=== PATIENT | female | born 1995 | race Caucasian/White ===

== ENCOUNTER 2017-09-12 22:31 | Emergency (ER) | payer SELFPAY ==
[2017-09-12] MEDS ORDERED: Ondansetron 4 MG/2 ML SDV IVPUSH ONE (22:51)
[2017-09-12] MEDS ORDERED: Ketorolac 30 MG/ML SDV IVPUSH ONE (22:51)
[2017-09-12] MEDS ORDERED: Sodium Chloride 0.9% 1,000 ML IV ONE (22:51)
--- NOTE | 2017-09-12 23:02 | EDM.PDOC ---
ED HPI GENERAL MEDICAL PROBLEM - General Chief Complaint: Flank Pain Stated Complaint: ABDOMINAL PAIN Time Seen by Provider: 09/12/17 22:56 - History of Present Illness INITIAL COMMENTS - FREE TEXT/NARRATIVE: HISTORY AND PHYSICAL: History of present illness: Patient's 22-year-old female history of anxiety presents with a concern of left flank pain she's had no urinary symptoms she denies trauma denies numbness weakness in concert touch bowel or bladder denies history of sexually transmitted diseases vaginal discharge or irregular bleeding. Review of systems: As per history of present illness and below otherwise all systems reviewed and negative. Past medical history: As per history of present illness and as reviewed below otherwise noncontributory. Surgical history: As per history of present illness and as reviewed below otherwise noncontributory. Social history: No reported history of drug or alcohol abuse. Family history: As per history of present illness and as reviewed below otherwise noncontributory. Physical exam: HEENT: Atraumatic, normocephalic, pupils reactive, negative for conjunctival pallor or scleral icterus, mucous membranes moist, throat clear, neck supple, nontender, trachea midline. Lungs: Clear to auscultation, breath sounds equal bilaterally, chest nontender. Heart: S1S2, regular, negative for clicks, rubs, or JVD. Abdomen: Soft, nondistended, nontender. Negative for masses or hepatosplenomegaly. Mild equivocal left side costovertebral tenderness. Pelvis: Stable nontender. Genitourinary: Deferred. Rectal: Deferred. Extremities: Atraumatic, negative for cords or calf pain. Neurovascular unremarkable. Neuro: Awake, alert, oriented. Cranial nerves II through XII unremarkable. Cerebellum unremarkable. Motor and sensory unremarkable throughout. Exam nonfocal. Diagnostics: CBC CMP hCG UA lipase Therapeutics: Normal saline 1 L bolus Toradol 30 mg IV Zofran 4 mg IV Impression: 1 left flank pain Definitive disposition and diagnosis as appropriate pending reevaluation and review of above. left flank Pain Score (Numeric/FACES): 10 - Related Data Allergies Allergy/AdvReac Type Severity Reaction Status Date / Time No Known Allergies Allergy Verified 09/12/17 23:34 Home Meds: Home Meds . [No Known Home Meds] 09/12/17 [History] Past Medical History - Past Health History Medical/Surgical History: Denies Medical/Surgical History Psychiatric History: Reports: Depression - Past Surgical History HEENT Surgical History: Reports: Tonsillectomy Female Surgical History: Reports: Other (See Below) Other Female Surgeries/Procedures: explor lap Social & Family History - Family History Family Medical History: Noncontributory Cardiac: Reports: Hypertension Other Endocrine/Metabolic Family History: Thyroid disease mom - Tobacco Use Smoking Status *Q: Current Every Day Smoker Years of Tobacco use: 5 Packs/Tins Daily: 1 Used Tobacco, but Quit: No Second Hand Smoke Exposure: Yes - Alcohol Use Days Per Week of Alcohol Use: 1 Number of Drinks Per Day: 1 Total Drinks Per Week: 1 - Recreational Drug Use Recreational Drug Use: No Drug Use in Last 12 Months: Yes Recreational Drug Type: Reports: Marijuana/Hashish Recreational Drug Use Frequency: Weekly ED ROS GENERAL - Review of Systems Review Of Systems: ROS reveals no pertinent complaints other than HPI. ED EXAM, GENERAL - Physical Exam Exam: See Below (The dictation) Course - Vital Signs Last Recorded V/S: Last Vital Signs Temp 36.6 C 09/13/17 00:10 Pulse 77 09/13/17 00:10 Resp 18 09/13/17 00:10 BP 97/63 09/13/17 00:10 Pulse Ox 97 09/13/17 00:10 - Orders/Labs/Meds Orders: Active Orders 24 hr Category Date Time Status cefTRIAXone [Rocephin in Dextrose,Iso-Osm 1 GM/50 ML] 1 Med 09/13/17 00:11 Active gm Premix Bag 1 bag IV ONETIME Medication Orders Ceftriaxone Sodium/Dextrose 1 (gm/ Premix) 50 mls @ 100 mls/hr IV ONETIME ONE Stop: 09/13/17 00:40 Labs: Laboratory Tests 09/12/17 09/12/17 09/12/17 Range/Units 22:45 22:45 23:00 WBC 16.39 H (4.0-11.0) K/uL RBC 4.50 (4.30-5.90) M/uL Hgb 14.3 (12.0-16.0) g/dL Hct 41.3 (36.0-46.0) % MCV 91.8 (80.0-98.0) fL MCH 31.8 (27.0-32.0) pg MCHC 34.6 (31.0-37.0) g/dL RDW Std Deviation 40.9 (28.0-62.0) fl RDW Coeff of Love 12 (11.0-15.0) % Plt Count 233 (150-400) K/uL MPV 9.30 (7.40-12.00) fL Neut % (Auto) 73.0 (48.0-80.0) % Lymph % (Auto) 18.7 (16.0-40.0) % [place] % (Auto) 7.8 (0.0-15.0) % Eos % (Auto) 0.3 (0.0-7.0) % Baso % (Auto) 0.2 (0.0-1.5) % Neut # (Auto) 12.0 H (1.4-5.7) K/uL Lymph # (Auto) 3.1 H (0.6-2.4) K/uL [place] # (Auto) 1.3 H (0.0-0.8) K/uL Eos # (Auto) 0.1 (0.0-0.7) K/uL Baso # (Auto) 0.0 (0.0-0.1) K/uL Nucleated RBC % 0.0 /100WBC Nucleated RBCs # 0 K/uL Sodium (136-146) mmol/L Potassium (3.5-5.1) mmol/L Chloride (98-110) mmol/L Carbon Dioxide (21-31) mmol/L BUN (6.0-23.0) mg/dL Creatinine (0.6-1.5) mg/dL Est Cr Clr Drug Dosing mL/min Estimated GFR (MDRD) ml/min Glucose (60-110) mg/dL Calcium (8.8-10.8) mg/dL Total Bilirubin (0.1-1.5) mg/dL AST (5-40) IU/L ALT (8-54) IU/L Alkaline Phosphatase (40-150) Total Protein (6.0-8.0) g/dL Albumin (3.5-5.0) g/dL Globulin (2.0-3.5) g/dL Albumin/Globulin Ratio (1.3-2.8) Lipase (7-80) U/L Urine Color YELLOW Urine Appearance SLT CLOUDY Urine pH 6.0 (5.0-8.0) Ur Specific [place] 1.020 (1.001-1.035) Urine Protein TRACE (NEGATIVE) mg/dL Urine Glucose (UA) NEGATIVE (NEGATIVE) mg/dL Urine Ketones NEGATIVE (NEGATIVE) mg/dL Urine Occult Blood SMALL H (NEGATIVE) Urine Nitrite NEGATIVE (NEGATIVE) Urine Bilirubin NEGATIVE (NEGATIVE) Urine Urobilinogen 1.0 (<2.0) EU/dL Ur Leukocyte Esterase NEGATIVE (NEGATIVE) Urine RBC 2-4 (0-2/HPF) Urine WBC 5-10 (0-5/HPF) Ur Epithelial Cells FEW (NONE-FEW) Urine Bacteria FEW (NEGATIVE) Urine HCG, Qual NEGATIVE (NEGATIVE) 09/12/17 Range/Units 23:00 WBC (4.0-11.0) K/uL RBC (4.30-5.90) M/uL Hgb (12.0-16.0) g/dL Hct (36.0-46.0) % MCV (80.0-98.0) fL MCH (27.0-32.0) pg MCHC (31.0-37.0) g/dL RDW Std Deviation (28.0-62.0) fl RDW Coeff of Love (11.0-15.0) % Plt Count (150-400) K/uL MPV (7.40-12.00) fL Neut % (Auto) (48.0-80.0) % Lymph % (Auto) (16.0-40.0) % [place] % (Auto) (0.0-15.0) % Eos % (Auto) (0.0-7.0) % Baso % (Auto) (0.0-1.5) % Neut # (Auto) (1.4-5.7) K/uL Lymph # (Auto) (0.6-2.4) K/uL [place] # (Auto) (0.0-0.8) K/uL Eos # (Auto) (0.0-0.7) K/uL Baso # (Auto) (0.0-0.1) K/uL Nucleated RBC % /100WBC Nucleated RBCs # K/uL Sodium 141 (136-146) mmol/L Potassium 3.9 (3.5-5.1) mmol/L Chloride 108 (98-110) mmol/L Carbon Dioxide 23 (21-31) mmol/L BUN 11 (6.0-23.0) mg/dL Creatinine 0.8 (0.6-1.5) mg/dL Est Cr Clr Drug Dosing 87.24 mL/min Estimated GFR (MDRD) > 60.0 ml/min Glucose 92 (60-110) mg/dL Calcium 9.7 (8.8-10.8) mg/dL Total Bilirubin 0.5 (0.1-1.5) mg/dL AST 19 (5-40) IU/L ALT 13 (8-54) IU/L Alkaline Phosphatase 73 (40-150) Total Protein 7.5 (6.0-8.0) g/dL Albumin 4.2 (3.5-5.0) g/dL Globulin 3.3 (2.0-3.5) g/dL Albumin/Globulin Ratio 1.3 (1.3-2.8) Lipase 22 (7-80) U/L Urine Color Urine Appearance Urine pH (5.0-8.0) Ur Specific [place] (1.001-1.035) Urine Protein (NEGATIVE) mg/dL Urine Glucose (UA) (NEGATIVE) mg/dL Urine Ketones (NEGATIVE) mg/dL Urine Occult Blood (NEGATIVE) Urine Nitrite (NEGATIVE) Urine Bilirubin (NEGATIVE) Urine Urobilinogen (<2.0) EU/dL Ur Leukocyte Esterase (NEGATIVE) Urine RBC (0-2/HPF) Urine WBC (0-5/HPF) Ur Epithelial Cells (NONE-FEW) Urine Bacteria (NEGATIVE) Urine HCG, Qual (NEGATIVE) Meds: Medications Generic Name Dose Route Start Last Admin Trade Name Freq PRN Reason Stop Dose Admin Ceftriaxone Sodium/Dextrose 1 50 mls @ 100 mls/hr 09/13/17 00:11 gm/ Premix IV 09/13/17 00:40 ONETIME ONE Discontinued Medications Generic Name Dose Route Start Last Admin Trade Name Freq PRN Reason Stop Dose Admin Sodium Chloride 1,000 mls @ 999 mls/hr 09/12/17 22:51 09/12/17 23:00 Normal Saline IV 09/12/17 23:51 999 mls/hr .Bolus ONE Administration Ketorolac Tromethamine 30 mg 09/12/17 22:51 09/12/17 23:05 Toradol IVPUSH 09/12/17 22:52 30 mg ONETIME ONE Administration Ondansetron HCl 4 mg 09/12/17 22:51 09/12/17 23:05 Zofran IVPUSH 09/12/17 22:52 4 mg ONETIME ONE Administration Departure - Departure Time of Disposition: 00:15 Disposition: Home, Self-Care 01 Condition: Good Clinical Impression: UTI, Urinary tract infectious disease - Discharge Information Referrals: PCP,None [Primary Care Provider] - Forms: ED Department Discharge Additional Instructions: The following information is given to patients seen in the emergency department who are being discharged to home. This information is to outline your options for follow-up care. We provide all patients seen in our emergency department with a follow-up referral. The need for follow-up, as well as the timing and circumstances, are variable depending upon the specifics of your emergency department visit. If you don't have a primary care physician on staff, we will provide you with a referral. We always advise you to contact your personal physician following an emergency department visit to inform them of the circumstance of the visit and for follow-up with them and/or the need for any referrals to a consulting specialist. The emergency department will also refer you to a specialist when appropriate. This referral assures that you have the opportunity for followup care with a specialist. All of these measure are taken in an effort to provide you with optimal care, which includes your followup. Under all circumstances we always encourage you to contact your private physician who remains a resource for coordinating your care. When calling for followup care, please make the office aware that this follow-up is from your recent emergency room visit. If for any reason you are refused follow-up, please contact the [facility] emergency department at and asked to speak to the emergency department charge nurse. Keflex as prescribed follow-up private medical doctor as needed as discussed and return as needed as discussed Motrin/Tylenol as directed - My Orders Last 24 Hours: My Active Orders 09/13/17 00:11 cefTRIAXone [Rocephin in Dextrose,Iso-Osm 1 GM/50 ML] 1 gm Premix Bag 1 bag IV ONETIME - Assessment/Plan Last 24 Hours: My Active Orders 09/13/17 00:11 cefTRIAXone [Rocephin in Dextrose,Iso-Osm 1 GM/50 ML] 1 gm Premix Bag 1 bag IV ONETIME
[2017-09-12 23:50] LABS: CHLORIDE,CL 108 mmol/L (98-110); SODIUM,NA 141 mmol/L (136-146)
[2017-09-13 00:10] VITALS: BP 97/63
[2017-09-13] MEDS ORDERED: cefTRIAXone 1 GM in Premix Bag 1 BAG IV ONE (00:11)
== END 2017-09-13 00:55 | disposition home or self-care (01) ==
LOC: MW.ED 22:31
DX: N39.0 Urinary tract infection, site not specified (principal); F17.210 Nicotine dependence, cigarettes, uncomplicated
CPT/HCPCS: 80053; 81001; 81025; 83690; 85025; 96361; 96365; 96375; 99284; J0696; J1885; J2405; J7040; 99283